=== PATIENT | female | born 1995 | race Caucasian/White ===

== ENCOUNTER 2021-09-18 05:51 | Emergency (ER) | payer OTHER ==
[~2021-09-18] VITALS: Ht 157.5 cm; Wt 97.2 kg
--- NOTE | 2021-09-18 06:18 | PHYS DOC ---
Adult General HPI HPI Patient is a 26-year-old female presenting for acute back pain. States she is 7 weeks from an uncomplicated , also admits history of appendectomy. States pain started yesterday without any known inciting event, trauma, ingestion, mechanism of injury, sick contact or travel. Rest makes better, certain positional movements and bearing down makes worse. Pain is dull and focal to the pubic area without radiation. Timing of symptoms has been constant since onset and worsening. Reports severity is 3/10 while at rest but increases to 6/10 in severity with exacerbating factors above. She has not taken anything in attempt to alleviate her symptoms. States she is otherwise h ealthy, recently started OCPs 2 weeks ago. Reports only complication as of late was delayed wound healing of scar which required a short round of antibiotics. Denies any fever, chills, shortness of breath, chest pain, ripping or tearing sensation in torso, dysuria, constipation, changes in motor or sensory or neuro function Review of Systems Review of Systems Fourteen body systems of review of systems have been reviewed. See HPI for pertinent positives and negative responses, other fernandez all other systems are negative, non-pertinent or non-contributory Physical Exam Physical Exam Constitutional: Well developed, overweight well nourished, no acute distress, non-toxic appearance. HENT: Normocephalic, atraumatic, bilateral external ears normal, oropharynx moist, no oral exudates, nose normal. Eyes: PERRLA, EOMI, conjunctiva normal, no discharge. Neck: Normal range of motion, no tenderness, supple, no stridor. Cardiovascular: Heart rate regular, sinus rhythm, no murmurs rubs or gallops Lungs & Thorax: Bilateral breath sounds clear to auscultation Abdomen: Bowel sounds normal, soft and protuberant, suprapubic tenderness without guarding or rebound no masses, no pulsatile masses. Negative heel strike. Nonsurgical abdomen, no peritoneal signs Skin: Warm, dry, no erythema, no rash. Well-appearing and healed horizontal suprapubic scar Back: No tenderness, no CVA tenderness. Extremities: No tenderness, no cyanosis, no clubbing, ROM intact, no edema. Neurologic: Alert and oriented X 3, grossly normal motor & sensory function, no focal deficits noted. Psychologic: Anxious affect and mood Current Patient Data Vital Signs Vital Signs Date Time Temp Pulse Resp B/P (MAP) Pulse Ox O2 Delivery O2 Flow Rate FiO2 09/18/21 06:28 98.0 83 16 119/77 (91) 99 Room Air Vital Signs Date Time Temp Pulse Resp B/P (MAP) Pulse Ox O2 Delivery O2 Flow Rate FiO2 09/18/21 07:45 79 24 124/90 (101) 98 Room Air 09/18/21 06:50 98.0 Lab Results Laboratory Tests Test 09/18/21 06:30 09/18/21 07:20 White Blood Count 8.0 x10^3/uL Red Blood Count 4.52 x10^6/uL Hemoglobin 12.0 g/dL Hematocrit 36.8 % Mean Corpuscular Volume 81 fL Mean Corpuscular Hemoglobin 27 pg Mean Corpuscular Hemoglobin Concent 33 g/dL Red Cell Distribution Width 15.2 % Platelet Count 257 x10^3/uL Neutrophils (%) (Auto) 68 % Lymphocytes (%) (Auto) 22 % Monocytes (%) (Auto) 8 % Eosinophils (%) (Auto) 1 % Basophils (%) (Auto) 1 % Neutrophils # (Auto) 5.5 x10^3uL Lymphocytes # (Auto) 1.8 x10^3/uL Monocytes # (Auto) 0.7 x10^3/uL Eosinophils # (Auto) 0.1 x10^3/uL Basophils # (Auto) 0.0 x10^3/uL Sodium Level 138 mmol/L Potassium Level 3.7 mmol/L Chloride Level 104 mmol/L Carbon Dioxide Level 22 mmol/L Anion Gap 12 Blood Urea Nitrogen 15 mg/dL Creatinine 0.9 mg/dL Estimated GFR (Cockcroft-Gault) 76.3 BUN/Creatinine Ratio 17 Glucose Level 96 mg/dL Calcium Level 9.3 mg/dL Total Bilirubin 0.2 mg/dL Aspartate Amino Transf (AST/SGOT) 22 U/L Alanine Aminotransferase (ALT/SGPT) 39 U/L Alkaline Phosphatase 91 U/L Total Protein 7.4 g/dL Albumin 3.7 g/dL Albumin/Globulin Ratio 1.0 Urine Collection Type Unknown Urine Color Yellow Urine Clarity Hazy Urine pH 5.5 Urine Specific [place] 1.025 Urine Protein Neg Urine Glucose (UA) Neg mg/dL Urine Ketones (Stick) Neg mg/dL Urine Blood Trace Urine Nitrite Neg Urine Bilirubin Neg Urine Urobilinogen Dipstick 0.2 mg/dL Urine Leukocyte Esterase Neg Urine RBC Occ /HPF Urine WBC 1-4 /HPF Urine Squamous Epithelial Cells Many /LPF Urine Bacteria Mod /HPF Urine Mucus Slight /LPF Current Medications Medications (Trade) Dose Ordered Sig/Kimo Route PRN Reason Start Time Stop Time Status Last Admin Dose Admin Sodium Chloride 1,000 ml @ 1,000 mls/hr 1X ONCE IV 09/18/21 07:45 09/18/21 08:44 UNV 09/18/21 07:46 Ketorolac Tromethamine (Toradol 15mg Vial) 15 mg 1X ONCE IVP 09/18/21 07:45 09/18/21 07:46 UNV 09/18/21 07:47 EKG EKG [] Radiology/Procedures Radiology/Procedures EXAM: ULTRASOUND PELVIS INDICATION: 7wk s/p suprapubic pain COMPARISON: None available. TECHNIQUE: Transabdominal sonography was performed. Patient declined transvaginal examination. FINDINGS: The uterus measures 8.9 x 8.1 x 5.1 cm. The endometrium measures 1.1 cm. No subcutaneous, periuterine, or endometrial fluid collection is seen. The right ovary measures 3.8 x 2.8 x 2.6 cm. Normal vascularity. The left ovary measures 4.2 x 3.1 x 2.1 cm. Normal vascularity. There is no free fluid. IMPRESSION: No subcutaneous, periuterine, or endometrial fluid collection is seen. Physiologic appearance of the uterus and ovaries. Electronically signed by: Richard Pritchett MD (09/18/2021 7:58 AM) [id number] Heart Score C/O Chest Pain: No Risk Factors: Risk Factors: DM, Current or recent (<one month) smoker, HTN, HLP, family history of CAD, obesity. Risk Scores: Risk Factors: DM, Current or recent (<one month) smoker, HTN, HLP, family history of CAD, obesity. Course & Med Decision Making Course & Med Decision Making ABCs unremarkable. I disclosed entirety of ER findings and discussed most likely diagnosis of lower abdominal pain of unknown etiology, I question typical postprocedural pain and abdominal muscle weakness that is likely be nign and self-limiting in etiology. Other diagnoses were discussed with patient such as pelvic abnormalities, cholecystitis and potentially other intra- abdominal abnormalities and emergencies but all deemed less likely causes of patient's presentation. Patient's symptoms improved with IV fluid and Toradol administration. She has not been taking anything for pain and so Tylenol and NSAIDs advised with close PCP follow-up. Plan of care discussed at length with need for close outpatient follow-up to review today's ER visit stressed. Strict return precautions were also discussed at length with good understanding verbalized by patient. Patient voiced understanding and agreement with the plan. Patient knows to come back for repeat evaluation if concerning signs or symptoms present prior to outpatient follow-up. Hemodynamically stable, ambulatory and well-appearing at time of disposition. Dragon Disclaimer Dragon Disclaimer This electronic medical record was generated, in whole or in part, using a voice recognition dictation system. Departure Departure: Impression: Primary Impression: Lower abdominal pain Disposition: HOME / SELF CARE / HOMELESS Condition: STABLE Referrals: PCP,UNKNOWN (PCP) Additional Instructions: You have been evaluated in the Emergency Department today for abdominal pain. Your evaluation was not suggestive of any emergent condition requiring medical intervention at this time. However, some abdominal problems make take more time to appear. Therefore, it is important for you to watch for any new symptoms or worsening of your current condition. Please contact your PCP and [facility] immediately after ER departure to review ER visit today and need for close outpatient follow-up for repeat evaluation Return to the Emergency Department if you experience worsening pain, persistent fevers greater than 100.4, recurrent vomiting, blood in vomit, blood in stool, dark tarry stool, chest pain, difficulty breathing, or any other concerning sy mptoms. DOMINICK SHEFFIELD DO Sep 18, 2021 06:18
[2021-09-18 06:52] LABS: BASO % 1 % (0-3); CALCIUM 9.3 mg/dL (8.5-10.1); CREATININE 0.9 mg/dL (0.6-1.0); EOS # 0.1 x10^3/uL (0.0-0.7); EOS % 1 % (0-3); GFR 76.3; HEMATOCRIT 36.8 % (36.0-47.0); LYMPH # 1.8 x10^3/uL (1.0-4.8); LYMPH % 22 % (24-48); MEAN CORPUSCULAR HEMOGLOBIN 27 pg (25-35); MEAN CORPUSCULAR HGB CONC 33 g/dL (31-37); MEAN CORPUSCULAR VOLUME 81 fL (79-100); MONO # 0.7 x10^3/uL (0.0-1.1); MONO % 8 % (0-9); NEUT # 5.5 x10^3uL (1.8-7.7); NEUT % 68 % (31-73); PLATELET COUNT 257 x10^3/uL (140-400); POTASSIUM 3.7 mmol/L (3.5-5.1); RED BLOOD COUNT 4.52 x10^6/uL (3.50-5.40); RED CELL DISTRIBUTION WIDTH 15.2 % (11.5-14.5)
[2021-09-18 07:00] LABS: ALBUMIN 3.7 g/dL (3.4-5.0); TOTAL BILIRUBIN 0.2 mg/dL (0.2-1.0); TOTAL PROTEIN 7.4 g/dL (6.4-8.2)
[2021-09-18] MEDS ORDERED: KETOROLAC 15 MG/ML VIAL. ONE (07:44)
[2021-09-18] MEDS ORDERED: KETOROLAC 15 MG/ML VIAL. IVP ONE (07:45)
[2021-09-18] MEDS ORDERED: IV NORMAL SALINE 1,000ML 1,000 ML IV ONE (07:45)
[2021-09-18 07:50] LABS: BACTERIA,URINE MOD /HPF (0-FEW); BILIRUBIN,URINE NEG (NEG); CLARITY,URINE HAZY; COLOR,URINE YELLOW; GLUCOSE,URINE NEG (NEG); NITRITE,URINE NEG (NEG); RBC,URINE OCC /HPF (0-2); SQUAMOUS EPITHELIAL CELL,UR MANY /LPF; UROBILINOGEN,URINE 0.2 mg/dL (0.2 mg/dL)
--- NOTE | 2021-09-18 08:00 | RAD ---
EXAM: ULTRASOUND PELVIS INDICATION: 7wk s/p suprapubic pain COMPARISON: None available. TECHNIQUE: Transabdominal sonography was performed. Patient declined transvaginal examination. FINDINGS: The uterus measures 8.9 x 8.1 x 5.1 cm. The endometrium measures 1.1 cm. No subcutaneous, periuterine , or endometrial fluid collection is seen. The right ovary measures 3.8 x 2.8 x 2.6 cm. Normal vascularity. The left ovary measures 4.2 x 3.1 x 2.1 cm. Normal vascularity. There is no free fluid. IMPRESSION: No subcutaneous, periuterine, or endometrial fluid collection is seen. Physiologic appearance of the uterus and ovaries. Electronically signed by: Richard Pritchett MD (09/18/2021 7:58 AM) [id number]
[2021-09-18 08:29] VITALS: BP 129/73
== END 2021-09-18 08:29 | disposition home or self-care (01) ==
LOC: ER 05:51
DX: R10.30 Lower abdominal pain, unspecified (principal); M54.89 Other dorsalgia; Z98.890 Other specified postprocedural states
CPT/HCPCS: 36415; 76856; 80053; 81001; 85025; 87086; 96361; 96374; 99285; J1885; J7030